=== PATIENT | female | born 1965 | race Caucasian/White ===

== ENCOUNTER → 2017-12-24 19:25 | Outpatient (CLI) | payer OTHER, SELFPAY ==
[2017-12-28 06:23] LABS: HPV APTIMA, High Risk Negative (Negative)
== END ==
PROVIDERS: Family Provider Family Medicine; PCP Family Medicine; Visit Provider Nurse Practitioner Women's Health
DX: R10.2 Pelvic and perineal pain (principal); Z12.4 Encounter for screening for malignant neoplasm of cervix
CPT/HCPCS: 87086; 88175; G0145

== ENCOUNTER → 2022-11-20 | Outpatient (CLI) | payer OTHER, SELFPAY ==
[2022-11-29 18:48] LABS: HPV APTIMA, High Risk Negative (Negative)
== END | disposition home or self-care (01) ==
PROVIDERS: PCP Family Medicine; Visit Provider Nurse Practitioner Women's Health
DX: Z01.419 Encounter for gynecological examination (general) (routine) without abnormal findings (principal)
CPT/HCPCS: 87624; 88175; G0145